=== PATIENT | female | born 1960 | race Caucasian/White ===

== ENCOUNTER 2017-08-10 09:18 | Emergency (ER) | payer OTHER ==
[~2017-08-10] VITALS: Ht 193 cm; Wt 61.2 kg
[2017-08-10] MEDS ORDERED: Prednisone20 MG PO (09:42)
== END 2017-08-10 19:49 | disposition home or self-care (01) ==
LOC: ER 09:18
DX: L25.9 Unspecified contact dermatitis, unspecified cause (principal); H02.846 Edema of left eye, unspecified eyelid; J44.9 Chronic obstructive pulmonary disease, unspecified
CPT/HCPCS: 99282